=== PATIENT | female | born 1965 | race Caucasian/White ===

== ENCOUNTER 2023-04-01 07:53 | Emergency (ER) | payer BC, SELFPAY ==
[2023-04-01 07:54] VITALS: BP 176/117
--- NOTE | 2023-04-01 08:30 | ED.GENMED ---
History of Present Illness
General
Chief Complaint: Musculo-Skeletal Complaint
Source: patient
Exam Limitations: none
Time Seen by Provider: 04/01/23 08:04
Nursing documentation reviewed up to this point in time: agreed with
Travel History
Have you had any contact with someone who has COVID-19?: No
Do you have any symptoms of coronavirus? Fever > 100 degrees, chills, cough, shortness of breath, sore throat, loss of taste or smell, muscle aches, or headache?: No
History of Present Illness
History of Present Illness:
57 yo female presents to the emergency department complaining of bilateral calf pain since Saturday. Mammalok on , and what she describes as not the best shoes. She denies any specific injury. She does exercise at the gym. No other past
medical history.
Past History
Past History
ED Past Medical History: GERD
ED Past Surgical History: None
Social History
Tobacco: Non-smoker
Alcohol: None
Drug: None
Living: with family
Employment: Employed
Review of Systems
Review of Systems
Allergies reviewed?: Yes
All Other Systems: Not applicable
Constitutional: Reports no symptoms
EENT: Reports no symptoms
Respiratory: Reports no symptoms
Cardiac: Reports no symptoms
ABD/GI: Reports no symptoms
: Reports no symptoms
Musculoskeletal: Reports muscle pain
Skin: Reports no symptoms
Neurological: Reports no symptoms
Endocrine: Reports no symptoms
Hematologic/Lymphatic: Reports no symptoms
Psychiatric: Reports no symptoms
Phy Exam
Physical Exam
Physical Exam:
Physical Exam
General: no apparent distress, not acutely ill
Neck: supple. no meningeal signs. normal posterior pharynx
Heart: s1/s2 regular rate and rhythm, no murmur. equal radial
pulses.
HEENT: Pupils equal round reactive to light, EOMI
Lungs: no acute respiratory distress. clear bilaterally
Abdomen: normal bowel sounds. not tender. no CVAT
Neuro: alert and oriented. no focal neurological deficits cranial nerves II through XII intact
Skin: no rash
Psychiatric: well kept. interactive and cooperative
Extremities: no edema. no calf tenderness. negative homans. good distal pulses
Course
Orders/Labs/Results
Orders:
Orders
04/01/23 08:14
US Legs, Bilateral [US Periph Venous LOWER Ext [place]] Urgent
Comment:
Reason For Exam: bilateral calf pain
04/01/23 09:13
Vital Signs- Treatment ONCE
Frequency: Once
Vital Signs
Initial and Last Documented VS:
Initial Vital Signs
Temp Pulse Resp BP Pulse Ox
98.3 F 87 18 176/117 98
04/01/23 07:54 04/01/23 07:54 04/01/23 07:54 04/01/23 07:54 04/01/23 07:54
Last Documented Vital Signs
Temp Pulse Resp BP Pulse Ox
98.3 F 85 16 143/101 98
04/01/23 07:54 04/01/23 09:37 04/01/23 09:37 04/01/23 09:37 04/01/23 09:37
MDM/Problems Addressed
Differential Diagnosis Includes:
Compartment syndrome, DVT
MDM/Problems Addressed:
57-year-old female with bilateral calf pain, no other symptoms. No shortness of breath specifically. Minimal pain at this time. Ultrasound negative for DVT. No signs of compartment syndrome or tendon injury. Stable for discharge. Will
discharge to follow-up with orthopedics. Return precautions given.
*Radiology
Radiology exam reviewed: radiology read reviewed (Ultrasound bilateral lower extremity no signs DVT)
*Pulse Oximetry
Patient hypoxic: no
*EKG
Interpreted by ED Provider?: NA
*Wood Floor Refinisher Interpretation
Rate: Wood Floor Refinisher- N/A
*Critical Care Note
Total Time (30-74mins, 75-104mins- exclusive of procedures): Not Applicable
Patient Management
Social determinants of health affecting care: Living situation and Strong social support
Escalation/DeEscalation of care consider admission/obs:
Admit not indicated
ED Attending Note
-
Portions of this chart may have been created with voice recognition software.� Occasional wrong word or��sound alike� substitutions may have occurred due to the inherent limitations of voice recognition software.
Discharge Plan
Departure
Patient Disposition: Home (Routine Discharge)
Date of Disposition: 04/01/23
Time of Disposition: 09:48
Patient with high blood pressure during this ER visit?: Yes
Condition: Good
Discharge Problem:
Bilateral leg pain
Instructions: Muscle and Bone Pain (DC), BLOOD PRESSURE
Referrals:
Nikolas Suarez MD [Family Provider] -
Tate Frye MD [Active] - Call in 1-3 days for appt
Interventions
Interventions:
*Risk Screen - Suicide Last Done: 04/01/23 07:54
*General Assessment Last Done: 04/01/23 07:54
*Neglect/Abuse Screening Last Done: 04/01/23 07:54
*ED COVID-19 Vaccine History Last Done: 04/01/23 07:54
ED-Musculoskeletal Assessment Last Done: 04/01/23 09:30
[2023-04-01 09:37] VITALS: BP 143/101
[2023-04-01 10:45] LABS: ALT (SGPT) 26 U/L (0-35); AST (SGOT) 33 U/L (14-36); Albumin 4.2 g/dl (3.5-5.0); Alkaline Phosphatase 88 U/L (38-126); Blood Urea Nitrogen 11 mg/dl (7-17); Calcium 9.2 mg/dl (8.4-10.2); Carbon Dioxide 30 mmol/L (22-30); Chloride 105 mmol/L (98-107); Creatine Phosphokinase 426 U/L (30-135); Glucose 102 mg/dl (70-99); Potassium 4.1 mmol/L (3.5-5.1); Sodium 139 mmol/L (135-145); Total Bilirubin 0.6 mg/dl (0.2-1.3); Total Protein 7.3 g/dl (6.3-8.2); eGFR > 60.00
[2023-04-01 10:56] VITALS: BP 154/108
[2023-04-01] MEDS: TORADOL 15 MG IM (11:24)
== END 2023-04-01 11:28 | disposition home or self-care (01) ==
LOC: EMR 07:53
PROVIDERS: EMERGENCY PHYSICIAN Emergency Medicine; FAMILY PHYSICIAN Internal Medicine
DX: M79.605 Pain in left leg (principal); M79.604 Pain in right leg; R03.0 Elevated blood-pressure reading, without diagnosis of hypertension
CPT/HCPCS: 99284; 96372; 80053; 82550; 93970